=== PATIENT | male | born 1945 | race Caucasian/White ===

== ENCOUNTER 2023-09-26 18:21 | Emergency (ER) | payer MEDICARE, OTHER ==
[~2023-09-26] VITALS: Ht 175.3 cm; Wt 83.9 kg
[2023-09-26] MEDS ORDERED: IBUP-1953 PO (18:43)
[2023-09-26 19:57] VITALS: BP 140/79; TEMP 97.8; O2SAT 98
== END 2023-09-26 19:59 | disposition home or self-care (01) ==
LOC: ER 18:21
DX: M54.2 Cervicalgia (principal); V43.62XA Car passenger injured in collision with other type car in traffic accident, initial encounter; Y93.89 Activity, other specified; Y92.488 Other paved roadways as the place of occurrence of the external cause; Y99.8 Other external cause status

== ENCOUNTER 2025-03-12 09:44 | Emergency (ER) | payer MEDICARE, OTHER ==
[~2025-03-12] VITALS: Ht 177.8 cm; Wt 101.6 kg
[~2025-03-12 09:44] MED LIST: IBUP-1953 PO
[2025-03-12] MEDS ORDERED: IBUP-1490 PO (10:53)
[2025-03-12 11:06] VITALS: BP 139/68; TEMP 98.9; O2SAT 99
== END 2025-03-12 11:14 | disposition home or self-care (01) ==
LOC: ER 09:46
DX: S39.011A Strain of muscle, fascia and tendon of abdomen, initial encounter (principal); S50.02XA Contusion of left elbow, initial encounter; V09.9XXA Pedestrian injured in unspecified transport accident, initial encounter; Y93.01 Activity, walking, marching and hiking; Y92.89 Other specified places as the place of occurrence of the external cause; Y99.8 Other external cause status
CPT/HCPCS: 72170-TC; 73080-TC